=== PATIENT | female | born 1975 | race Caucasian/White ===

== ENCOUNTER 2019-03-01 12:39 | Emergency (ER) | payer OTHER, BC, SELFPAY ==
[2019-03-01] VITALS (23 sets, daily range): BP systolic 101–128; BP diastolic 58–112; PULSE 66–107; RESP 16–22; TEMP 36.5; O2SAT 82–100
--- NOTE | 2019-03-01 13:16 | DI.RAD_ITS ---
EXAM: XR WRIST LT COMPLETE INDICATION: pain. COMPARISON: No exams were available for comparison TECHNIQUE: 2D digital imaging was performed. FINDINGS: No fracture or dislocation is seen. IMPRESSION: Negative left wrist
--- NOTE | 2019-03-01 13:16 | DI.CT_ITS ---
EXAM: CT HEAD CERV SPINE AND FACIAL WO CLINICAL HISTORY: fall TECHNIQUE: Noncontrast COMPARISON: No exams were available for comparison FINDINGS: HEAD CT: No intracranial hemorrhage or skull fracture is seen. The ventricles are normal in size. T here is no evidence of mass or infarct. CERVICAL SPINE CT: There is no evidence of cervical fracture or subluxation. The airway appears inta ct. There are no significant degenerative changes. FACIAL CT: No facial fractures are identified. The globes appear intact. There is no significant si nus disease. IMPRESSION: Negative CT of the head, face and neck.
--- NOTE | 2019-03-01 13:16 | DI.RAD_ITS ---
EXAM: XR HAND LT COMPLETE INDICATION: pain. COMPARISON: No exams were available for comparison TECHNIQUE: 2D digital imaging was performed. FINDINGS: The fingers are suboptimally profiled. There are nondisplaced fractures seen through the proximal po rtions of the distal phalanx of the index and ring fingers. There is no apparent extension to the ar ticular surface. There is minimal posterior angulation. IMPRESSION: Nondisplaced fractures of the distal phalanges of the index and middle fingers.
--- NOTE | 2019-03-01 13:22 | DI.CT_ITS ---
EXAM: CT THORACIC SPINE WO CLINICAL HISTORY: pain, fall TECHNIQUE: Noncontrast COMPARISON: No exams were available for comparison FINDINGS: There is no evidence of fracture. A hemangioma is incidentally noted in the T11 vertebral body. Th ere is no paraspinal hematoma. There is minimal scarring at the lung apices. No pneumothorax is see n. There is no significant scoliosis. IMPRESSION: Negative CT of the thoracic spine.
[2019-03-01] MEDS: LORazepam 2 MG/ML VIAL 1 MG IVP ×2 (13:31→15:51)
[2019-03-01] MEDS: Normal Saline 1,000 ML 1000 ML IV (13:33)
[2019-03-01 13:55] LABS: Abs Immature Grans 0.01 k/cumm (0.0-0.09); Absolute Basophil Count 0.05 k/cumm (0.0-0.2); Absolute Eosinophil Count 0.09 k/cumm (0.0-0.7); Absolute Lymphocyte Count 1.68 k/cumm (1.2-3.4); Absolute Monocyte Count 0.79 k/cumm (0.11-0.7); Absolute Neutrophil Count 5.37 k/cumm (1.2-6.7); Basophils % 0.6; Eosinophils % 1.1; HCT 41.9 % (36.0-46.0); HGB 13.9 g/dL (12.0-15.5); Immature Grans % 0.1; Mean Corp. HGB Concentration 33.2 g/dL (32.0-36.0); Mean Corpuscular Hemoglobin 29.1 pg (27.0-33.0); Mean Corpuscular Volume 87.8 fL (80-95); Mean Platelet Volume 11.6 fL (8.0-11.0); Monocytes % 9.9; Neutrophils % 67.3; Platelet Count 277 x1000/uL (130-400); RBC 4.77 m/cumm (4.00-5.20); RBC Distribution Width 12.8 % (11.7-14.6); White Blood Cell Count 7.99 k/cumm (4.4-10.8)
[2019-03-01 14:06] LABS: ALT 55 U/L (14-59); AST 33 U/L (15-37); Albumin 4.3 g/dL (3.4-5.0); Alkaline Phosphatase 97 U/L (46-116); Anion Gap 13.4 mmol/L (3-11); BUN 18 mg/dL (7-18); Bilirubin, Total 0.8 mg/dL (0.2-1.0); CO2 24.6 mmol/L (21.0-32.0); Calcium 9.8 mg/dL (8.5-10.1); Chloride 102 mmol/L (98-107); Glucose 96 mg/dL (74-106); Potassium 3.5 mmol/L (3.5-5.1); Sodium 140 mmol/L (136-145); Total Protein 8.3 g/dL (6.4-8.2)
[2019-03-01 14:08] LABS: PTT Activated 25.5 sec (21.0-31.4)
[2019-03-01] MEDS: Normal Saline Flush 10 ML SYR IVP (15:51)
--- NOTE | 2019-03-01 16:18 | W.ED.GENAD ---
Discharge Plan Disposition Patient Disposition: HOME Condition: Good Discharge Details Chief Complaint: Trauma Clinical Impression: Cervical muscle strain, Fall, Finger fracture Primary Care Provider: Sheree Sharp ED Provider: Marybeth Jenkins Home Meds and New Rx's Prescriptions: New cyclobenzaprine 10 mg tablet 10 mg PO TID PRN (Reason: muscle spasm) Qty: 10 RF: 0 Continued multivitamin [Daily Multi-Vitamin] 1 EACH tablet 1 ea PO DAILY RF: 0 ranitidine HCl 150 MG tablet 150 mg PO BID PRN RF: 0 vitamin B complex 1 EACH tablet 1 ea PO DAILY RF: 0 Discharge Instructions Instructions: Cervical Strain (ED), Finger Fracture (ED) Additional Instructions: Regard to finger, it appears that you have fractured the distal phalanx of the index and middle finger. Please keep splint on until reevaluated by orthopedics. Encourage rest, ice, elevation. Tylenol and ibuprofen as needed for discomfort. Please call orthopedics tomorrow to schedule follow-up appointment. Regard to your muscle strain of your neck, the MRI is reassuring at this time with no evidence of fracture or spinal cord injury. Please encourage gentle range of motion as instructed. Heat or ice to affected area. If you develop muscle spasms, please take the Flexeril as prescribed. Do not drive will take this medication as it may make you drowsy. You may use Tylenol and/or ibuprofen as needed for discomfort. Please follow-up with primary care in 1 week for reevaluation. If you develop increased pain, fever/chills, weakness or other new/worsening symptoms please seek care urgently once again. Stand Alone Forms: Work Release Referrals: Sheree Sharp MD [Primary Care Provider] - Alonso Husain MD [ [facility] STAFF PHYSICIAN] - Discharge Data Discharge Date/Time-TO BE ENTERED AT DEPARTURE: 03/01/19 18:55 Medical Decision Making <BIBIANA Gay - Last Filed: 03/02/19 09:01> Is a 43-year-old woman who presents to the ER for complaints of fall. Patient reports she was skipping/dancing down the [place] and she tripped became airborne and struck her neck and left arm against the wall. Patient reports mild headache, facial pain over the left zygoma, predominant complaints are neck pain and left hand pain. Patient is also quite anxious yet complaining of tingling of her arms and leg. Patient is complaining specifically of weakness in her extremities. Patient denies any chest or abdominal pain or trauma. Patient denies pain in the lower extremities although she reports the tingling is extremely bothersome. Patient does have a history of complex regional pain syndrome and does report pain in her right arm for which she is received injections in her neck in the past. Patient seems extremely anxious at this time. Patient did receive 100 mcg of fentanyl prior to arrival and ambulance. Patient does report mild nausea during the ambulance ride. Patient is complaining of headache but denies obvious loss of consciousness. Patient clearly is complaining of neck pain and is currently in a cervical collar. Imaging studies specifically head and facial bone CT including cervical spine. As well as a thoracic x-ray of her back given her complaints of pain. X-rays ordered of wrist and hand on the left given her exam. I am somewhat concerned although the patient is quite histrionic at this time but focally she does have some obvious weakness of her extremities which is global. CTs of head cervical and thoracic spine are normal. No obvious facial fractures. She does have obvious fractures of the second and third digits of her fingers. Splints were placed. After patient CTs returned normal I reexamined her neck for clearance of cervical collar. Patient had obvious midline tenderness of the cervical spine. Collar was replaced. Discussed with my attending Dr. Dr. Alexsander Lundberg. We both felt at this time it was most reasonable to order an MRI of her cervical spine prior to collar clearance given her focal tenderness. Ativan was given for premedication prior to MRI. Patient signed out pending MRI and splinting of the left hand. <BIBIANA Palomino - Last Filed: 03/01/19 20:28> Care transition to myself with imaging pending. MRI of the patient's cervical spine was obtained and reviewed by radiologis: FINDINGS: Vertebrae: Unremarkable. Spinal cord: Normal signal. No cord compression. C2-C3: No significant disc disease. No significant spinal stenosis. C3-C4: No significant disc disease. No significant spinal stenosis. C4-C5: No significant disc disease. No significant spinal stenosis. C5-C6: No significant disc disease. No significant spinal stenosis. C6-C7: No significant disc disease. No significant spinal stenosis. C7-T1: No significant disc disease. No significant spinal stenosis. Vertebral arteries: Expected flow voids in the vertebral arteries. Soft tissues: Unremarkable. Other findings: Motion artifact is degrading the images. IMPRESSION: No acute abnormality. Discussed these findings with the patient. C-collar was removed, patient is able to move her neck with no evidence of discomfort. She reports that the tingling she had initially been experiencing since subsided. Feels that her pain is improved. We did discuss that she is at high risk for muscle spasms and whiplash. Encouraged gentle stretching. Stretching exercises were discussed and demonstrated. Advise heat or ice. Tylenol and ibuprofen as needed for discomfort. Watch for pain may be associated with muscle spasm, patient will be prescribed Flexeril in the event they should occur. Discussed splinting options with the patient's left hand. She has distal phalanx fractures of the index and middle finger. However, the patient is insistent she has fracture to be ring finger although I find no documentation of this and do not see evidence of this on x-ray. She would like to have all 3 fingers splinted. As was discussed by Taylor Emanuel PA-C, individually splinting each finger would be cumbersome. Therefore, a plaster splint was created that wraps over the distal tip of the fingers. Patient tolerated this well and finds to be comfortable. I encouraged rest, ice, elevation. Again, advised Tylenol and/or ibuprofen as needed for discomfort. She was given return precautions. She will contact orthopedics tomorrow to schedule follow-up appointment. All of her questions and concerns were addressed and she is in agreement with this plan. HPI <BIBIANA Gay - Last Filed: 03/02/19 09:01> General Date/Time Provider Initiated Documentation: 03/01/19 12:54. HPI Narrative: Is a 43-year-old patient who presents after a fall. She was skipping/dancing down the [place] at work when she tripped and fell. Patient reports she was in the air when she struck the wall of the hallway. Patient reports she struck her neck as well as her left hand. Patient reports mild headache since that time. Patient reports nausea without vomiting. Denies obvious loss of consciousness although she reports she had some darkness to her vision which is quite transient. Patient complaining primarily of neck pain. Patient reports mild upper back pain. No chest pain, difficulty breathing shortness of breath or wheezing. Patient is complaining of left hand pain. She reports a tingling which she specifically notes in her extremities bilaterally both upper and lower extremity. Patient reports mild weakness of her legs. Patient denies any incontinence of urination. Denies any radiating pain into the lower extremities. Denies abdominal pain or distention. Patient denies any blurred vision with double vision or vision changes at this time. Patient does report complex regional pain syndrome for which she has received injections in her neck in the past. Related Data Home Medications Medication Instructions Recorded Confirmed multivitamin [Daily Multi-Vitamin] 1 ea PO DAILY 07/04/12 03/01/19 ranitidine HCl 150 mg PO BID PRN tab-cap 07/04/12 03/01/19 vitamin B complex 1 ea PO DAILY 11/02/12 03/01/19 cyclobenzaprine 10 mg PO TID PRN #10 tab 03/01/19 Previous Rx's Medication Instructions Recorded cyclobenzaprine 10 mg PO TID PRN #10 tab 03/01/19 Allergies Allergy/AdvReac Type Severity Reaction Status Date / Time codeine Allergy Intermediate RASH, Unverified 03/01/19 12:51 ITCHING lactose Allergy Unknown Unverified 03/01/19 12:51 ibuprofen AdvReac Intermediate Unverified 03/01/19 12:51 General Stated Complaint: Trauma BLAIR: 2 Review of Systems <BIBIANA Gay - Last Filed: 03/02/19 09:01> All systems reviewed & are unremarkable except as noted in HPI and below Constitutional Constitutional: Denies chills, Denies fever(s), Reports headache(s) and Denies malaise Eyes Eyes: Denies blind spots, Denies blurry vision and Denies eye pain ENT Ears, Nose, Mouth, and Throat: Reports facial pain, Reports headache(s), Denies nasal discharge, Denies nasal trauma, Reports neck pain, Denies sore throat and Denies throat swelling Cardiovascular Cardiovascular: Denies chest pain, Denies chest pain at rest and Denies palpitations Respiratory Respiratory: Denies cough, Denies pain on inspiration and Denies pain with cough Gastrointestinal Gastrointestinal: Denies abdominal pain, Reports nausea and Denies vomiting Musculoskeletal Musculoskeletal: Denies deformity, Reports muscle weakness, Reports neck pain and Reports tingling Neurologic Neurologic: Reports headache(s) and Reports tingling Endocrine Endocrine: Denies palpitations Allergic/Immunologic Allergic/Immunologic: Denies throat swelling PFSH <BIBIANA Gay - Last Filed: 03/02/19 09:01> Medical History 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 Surgical History (Updated 01/26/18 @ 14:34 by [employer] [place]) Dilation and curettage 2011 after SAB. No complications. Sigmoidoscopy Family History Mother Essential hypertension Personal history of malignant neoplasm Father Diabetes Essential hypertension Heart disease Sister Mental disorder Depression Sister Essential hypertension Sister No problems noted. Grandfather No problems noted. Grandfather No problems noted. Grandmother Diabetes Stroke Grandmother No problems noted. Son No problems noted. Son , Infant No problems noted. Daughter Mental disorder Depression Social History Smoking/Tobacco Use Status: Never Alcohol Intake: never Drug use: Never Do you feel safe at home: Yes Do you feel safe in your relationship?: Yes Exam <BIBIANA Gay - Last Filed: 03/02/19 09:01> Narrative Exam Narrative: CONST: Healthy appearing patient, appears uncomfortable. Appears anxious. Well hydrated. Alert and alert. HENMT: Head nomocephalic, normal to inspection. No obvious evidence of trauma. Left zygoma tenderness with palpation. Hearing grossly normal. External ear canal no erythema or swelling. TM normal bilaterally. Nose normal to inspection. No rhinnorhea. No septal hematoma. Oral mucosa normal. Tounge normal. Dentition normal. Normal posterior oropharynx. Uvula midline. EYES: General normal appearance. Alignment normal. Eyelids normal. Conjunctiva normal. Sclera normal. PERRL. NECK: Normal visual inspection. FROM. No lymphadenopathy. Trachea midline. + Midline tenderness. Cervical collar in place CHEST: Normal insepection of the chest. RESP: Normal respiratory effort. Speaking full sentences. No cough. No wheezing. No retractions. Clear to auscaltation. Breath sound equal and present bilaterally. CARDIO: No JVD. Normal PMI. Regular Rate. Regular Rhythm. Normal peripheral pulses. GI: Normal inspection of abdomen. No distension. Soft. Nontender. Bowel sounds present in all 4 quadrants. No rebound. No gaurding. MUSCULOSKELETAL: Left shoulder with no focal pain with palpation, no clavicle pain with palpation, no humeral pain with palpation of elbow pain with palpation. Wrist pain with palpation noted and digit tenderness distally at the second third and fourth digits on the left hand. Limitation due to pain with flexion extension exam. Sensation intact distally. 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 Patient has full range of motion of right arm. No focal pain with palpation of right arm. Lower extremities. Weak straight leg raising bilaterally. Patient able to heel slide and internally externally rotate her hips bilaterally without pain. No focal tenderness with palpation overlying the hips, femurs or knees bilaterally. No evidence of swelling of the lower legs. No obvious bruising to the lower legs. Patient with a weak flexion and extension of the feet symmetrically however she is capable of dorsiflexion and plantarflexion. Sensation is intact distally. Pulses are intact distally. SKIN: Normal. Dry. No rashes. NEURO: Alert and awake. Speech clear. Alert and oriented x 3. Speech is clear. Cranial nerves intact as tested III - XI. No rotary nystagmus. Sensation intact in all extremities. PSYCH: Normal affect. Cooperative. Course <BIBIANA Gay - Last Filed: 03/02/19 09:01> Vital Signs Vital signs: Vital Signs Temperature 36.5 C 03/01/19 12:43 Pulse 92 H 03/01/19 12:43 Respiratory Rate 22 03/01/19 12:43 Blood Pressure 123/112 H 03/01/19 12:43 Pulse Oximetry 100 03/01/19 12:43 Temperature 36.5 C 03/01/19 12:43 Temperature Source Temporal Artery Scan 03/01/19 12:43 Pulse 95 H 03/01/19 13:42 Respiratory Rate 22 03/01/19 12:43 Respiratory Effort Non-Labored 03/01/19 13:07 Respiratory Depth Normal 03/01/19 13:07 Respiratory Pattern Tachypnea 03/01/19 13:07 Blood Pressure 118/61 03/01/19 13:42 Blood Pressure Mean 74 03/01/19 13:42 Blood Pressure Position Supine 03/01/19 12:43 Pulse Oximetry 100 03/01/19 13:42 Oxygen Delivery Method Room Air 03/01/19 12:43 Oxygen Flow Rate 0 03/01/19 12:43 Pain Level 8 03/01/19 12:43 Lab/Test Results Lab/Test Results: Laboratory Tests Range/Units 03/01/19 03/01/19 03/01/19 13:39 13:39 13:39 WBC (4.4-10.8) k/cumm 7.99 RBC (4.00-5.20) m/cumm 4.77 Hgb (12.0-15.5) g/dL 13.9 Hct (36.0-46.0) % 41.9 MCV (80-95) fL 87.8 MCH (27.0-33.0) pg 29.1 MCHC (32.0-36.0) g/dL 33.2 RDW (11.7-14.6) % 12.8 Plt Count (130-400) x1000/uL 277 MPV (8.0-11.0) fL 11.6 H Immature Gran % 0.1 Neutrophils % 67.3 Lymphocytes % 21.0 Monocytes % 9.9 Eosinophils % 1.1 Basophils % 0.6 Absolute Neutrophils (1.2-6.7) k/cumm 5.37 Absolute Lymphocytes (1.2-3.4) k/cumm 1.68 Absolute Monocytes (0.11-0.7) k/cumm 0.79 H Absolute Eosinophils (0.0-0.7) k/cumm 0.09 Absolute Basophils (0.0-0.2) k/cumm 0.05 PT (9.3-11.0) sec 10.0 INR (0.9-1.1) 1.0 APTT (21.0-31.4) sec 25.5 Sodium (136-145) mmol/L 140 Potassium (3.5-5.1) mmol/L 3.5 Chloride (98-107) mmol/L 102 Carbon Dioxide (21.0-32.0) mmol/L 24.6 Anion Gap (3-11) mmol/L 13.4 H BUN (7-18) mg/dL 18 Creatinine (0.55-1.02) mg/dL 0.90 Estimated GFR/1.73 m2 (mL/min/1.73m2) >= 60.00 Glucose (74-106) mg/dL 96 Calcium (8.5-10.1) mg/dL 9.8 Total Bilirubin (0.2-1.0) mg/dL 0.8 AST (15-37) U/L 33 ALT (14-59) U/L 55 Alkaline Phosphatase (46-116) U/L 97 Total Protein (6.4-8.2) g/dL 8.3 H Albumin (3.4-5.0) g/dL 4.3 Sign Out <BIBIANA Gay - Last Filed: 03/02/19 09:01> Sign Out Data: Sign Out Comment: Signout pending splinting of the left hand and MRI results of the cervical spine for definitive collar clearance. Last updated by Shanique Mata PA at 03/01/19 16:31
--- NOTE | 2019-03-01 16:45 | DI.MRI_ITS ---
EXAM: MR CERVICAL SPINE WO CLINICAL HISTORY: pain, fall, neck trauma TECHNIQUE: Multiplanar multisequence MRI of the cervical spine was performed without intravenous con trast. COMPARISON: CT HEAD CERV SPINE FACIAL WO from 03/01/2019 FINDINGS: BONES: Vertebral body heights are maintained. Intervertebral disc spaces are normal. Alignment is nor mal. Bone marrow signal intensity is within normal limits. CERVICAL CORD: Craniovertebral junction is unremarkable. The cervical cord is normal size and signal intensity. SOFT TISSUES: Unremarkable. C2-3: No disc herniation or bulge is identified. No central spinal canal or neural foraminal stenosi s. C3-4: No disc herniation or bulge is identified. No central spinal canal or neural foraminal stenosi s. C4-5: No disc herniation or bulge is identified. No central spinal canal or neural foraminal stenosi s. C5-6: No disc herniation or bulge is identified. No central spinal canal or neural foraminal stenosi s. C6-7: No disc herniation or bulge is identified. No central spinal canal or neural foraminal stenosi s. C7-T1: No disc herniation or bulge is identified. No central spinal canal or neural foraminal stenos is. There is patient motion artifact degrading the images. IMPRESSION: No acute abnormality.
--- NOTE | 2019-03-01 17:13 | DI.VRAD_ITS ---
PROCEDURE INFORMATION: Exam: MR Cervical Spine Without Contrast Exam date and time: 03/01/2019 4:35 PM Age: 43 years old Clinical history: Neck pain TECHNIQUE: Imaging protocol: Multiplanar magnetic resonance images of the cervical spine without contrast. COMPARISON: CT HEAD CERV SPINE FACIAL WO 03/01/2019 2:06 PM FINDINGS: Vertebrae: Unremarkable. Spinal cord: Normal signal. No cord compression. C2-C3: No significant disc disease. No significant spinal stenosis. C3-C4: No significant disc disease. No significant spinal stenosis. C4-C5: No significant disc disease. No significant spinal stenosis. C5-C6: No significant disc disease. No significant spinal stenosis. C6-C7: No significant disc disease. No significant spinal stenosis. C7-T1: No significant disc disease. No significant spinal stenosis. Vertebral arteries: Expected flow voids in the vertebral arteries. Soft tissues: Unremarkable. Other findings: Motion artifact is degrading the images. IMPRESSION: No acute abnormality. Dictated and Authenticated by: Mauricio Leroy MD. Ordering:STEVEN Bay MD
--- NOTE | 2019-03-01 18:58 | NUR.NOTE ---
Discharge instructions reviewed with verbal understanding. aware to f/u with pcp and ortho as needed. ambulated to exit wit steady gait.
== END 2019-03-01 18:55 | disposition home or self-care (01) ==
PROVIDERS: Physician Assistant; Emergency Provider Physician Assistant; PCP Family Medicine
DX: S16.1XXA Strain of muscle, fascia and tendon at neck level, initial encounter (principal); S62.661A Nondisplaced fracture of distal phalanx of left index finger, initial encounter for closed fracture; S62.663A Nondisplaced fracture of distal phalanx of left middle finger, initial encounter for closed fracture; R51 Headache; R11.0 Nausea; R20.2 Paresthesia of skin; W01.198A Fall on same level from slipping, tripping and stumbling with subsequent striking against other object, initial encounter; Y92.008 Other place in unspecified non-institutional (private) residence as the place of occurrence of the external cause
CPT/HCPCS: 26750; 36415; 80053; 96361; 96374; 96376; 99284; 70450; 70486; 72125; 72128; 72141; 73110; 73130; 85025; 85610; 85730; 99285; J2060

== ENCOUNTER 2019-03-08 08:50 | Outpatient (CLI) | payer OTHER, BC, SELFPAY ==
--- NOTE | 2019-03-08 08:11 | DI.RAD_ITS ---
EXAM: XR HAND LT COMPLETE CLINICAL HISTORY: F/U FRACTURES OF INDEX AND MIDDLE FINGER, LT HAND TECHNIQUE: COMPARISON: XR HAND LT COMPLETE from 03/01/2019 FINDINGS: Three views were obtained and show previously described fractures of the distal phalanges index and r ing fingers. No change in alignment in comparison with previous examination of March 01. IMPRESSION:
== END 2019-03-08 09:10 ==
PROVIDERS: PCP Family Medicine; Visit Provider Student in an Organized Health Care Education/Training Program
DX: S62.661D Nondisplaced fracture of distal phalanx of left index finger, subsequent encounter for fracture with routine healing (principal); S62.663D Nondisplaced fracture of distal phalanx of left middle finger, subsequent encounter for fracture with routine healing
CPT/HCPCS: 73130

== ENCOUNTER 2019-05-02 15:19 | Outpatient (CLI) | payer OTHER, BC, SELFPAY ==
--- NOTE | 2019-05-02 15:12 | DI.RAD_ITS ---
EXAM: XR HAND LT LIMITED CLINICAL HISTORY: Pain TECHNIQUE: COMPARISON: No exams were available for comparison FINDINGS: Two views were obtained and show further healing of fractures of the distal phalanges of index and mi ddle fingers, no gross interval change in alignment of the fracture fragments in comparison with prio r examination of March 08, 2019. IMPRESSION:
== END 2019-05-02 15:39 ==
PROVIDERS: PCP Family Medicine; Visit Provider Student in an Organized Health Care Education/Training Program
DX: M79.642 Pain in left hand (principal); S62.661D Nondisplaced fracture of distal phalanx of left index finger, subsequent encounter for fracture with routine healing; S62.663D Nondisplaced fracture of distal phalanx of left middle finger, subsequent encounter for fracture with routine healing
CPT/HCPCS: 73120

== ENCOUNTER 2020-03-12 10:35 | Outpatient (CLI) | payer BC, SELFPAY ==
[2020-03-14 17:01] LABS: Patient Race White; SARS-CoV-2 RNA Undetected (Undetected); SARS-CoV-2 Specimen Source Nasal
== END 2020-03-12 10:55 ==
PROVIDERS: PCP Family Medicine; Visit Provider Family Medicine
DX: Z20.828 Contact with and (suspected) exposure to other viral communicable diseases (principal)
CPT/HCPCS: U0003

== ENCOUNTER 2020-11-11 16:01 | Outpatient (REF) | payer BC, SELFPAY ==
--- NOTE | 2020-11-11 15:15 | PAPFT_PTH ---
PATIENT: Onofre Dumont LOC: [facility] U#:[id number] AGE/SX: 45/F ROOM: RE11/11/[address]: Shreee Sharp MD : 1975 BED: DIS: 11/11/2020 SPEC #: [id number] RECD: 11/11/20 18:13 STATUS: [place] REQ #: [id number] JAYDEN: 11/11/20 15:[address]: Sheree Shapr DEPT: [facility] Cytology RECD BY: Radha Irwin Tissues: 1 - CX/ENDOCX FOR PAP SMEARS Procedures: PAP THIN PREP/UVM Screening HPV DNA PROBE Comments: [id number]
== END 2020-11-11 16:02 | disposition home or self-care (01) ==
LOC: LBN 16:01
PROVIDERS: PCP Family Medicine; Visit Provider Family Medicine
DX: Z12.4 Encounter for screening for malignant neoplasm of cervix (principal); Z11.51 Encounter for screening for human papillomavirus (HPV)
CPT/HCPCS: 88142; 87624

== ENCOUNTER 2021-04-07 02:34 | Outpatient (CLI) | payer BC, SELFPAY ==
--- NOTE | 2021-04-07 08:00 | DI.MAMMO_ITS ---
Exam(s) MAMMO SCREENING EXAM: MAMMO SCREENING CLINICAL HISTORY: screening,Z12.39, FAMILY H/O BREAST CANCER (MOTHER). TECHNIQUE: Bilateral full field digital CC and MLO mammographic images were obtained with 3D tomosyn thesis and utilizing computer aided detection (CAD). COMPARISON: None. This is a baseline mammogram on this 45-year-old patient. Family history. Amita bell was apparently diagnosed with breast cancer. FINDINGS: There are no significant radiograph findings in the right breast. In the left breast there are 2 findings. Small benign-appearing nodule in the upper outer quadrant r egion has appearance of probably benign node. Other findings is on the CC view where there is an are a of asymmetric density seen approximately 3 cm in from the nipple.. Require spot compression view. No malignant-appearing microcalcification groups is region or elsewhere in either breast. There is no significant architectural distortion nor skin thickening-retraction. IMPRESSION: 1. No radiographic evidence of malignancy in the right breast. 2. Asymmetric density left breast which require spot compression view and possible ultrasound. BI-RADS Category 0 - Assessment Incomplete: Need additional imaging evaluation Breast Density - Category B - Scattered areas of fibroglandular density Breast density Category C or D implies that the patient has dense breast tissue. Dense breast tissue can make it harder to find cancer on a mammogram. Dense breast tissue is also associated with an incr eased risk of breast cancer. This information about the result of the mammogram report was provided to the patient to raise their awareness. Use this report when you speak with the patient about their risks for breast cancer, which includes their family history. At that time, you may recommend additional screening tests (Ultrasoun d or MRI) as these tests may add significant information. A negative radiographic report should not delay biopsy if a dominant or clinically suspicious mass is present. Up to ten percent of cancers are not identified on mammography. A negative report may reinforce clinical impression. Adenosis and dense breasts may obscure an underlying neoplasm. False positive reports average 6 to 10%. Patient will receive a letter notifying them of these results.
== END 2021-04-07 02:54 ==
PROVIDERS: PCP Family Medicine; Visit Provider Family Medicine
DX: Z12.31 Encounter for screening mammogram for malignant neoplasm of breast (principal); R92.8 Other abnormal and inconclusive findings on diagnostic imaging of breast
CPT/HCPCS: 77063; 77067

== ENCOUNTER 2021-04-24 01:59 | Outpatient (CLI) | payer BC, SELFPAY ==
--- NOTE | 2021-04-24 15:00 | DI.MAMMO_ITS ---
Exam(s) MAMMO SCREEN CALL BACK UNI EXAM: MAMMO SCREEN CALL BACK UNI CLINICAL HISTORY: F/U ABNL MAMMO, NODULE IN UOQ, ASYMMETRIC DENSITY 3 CM FROM NIPPLE TECHNIQUE: Spot compression views and tomographic imaging were performed. COMPARISON: 07 April 2021 FINDINGS: No suspicious masses or suspicious microcalcifications are seen. No persistent abnormality is seen on the additional views performed. The findings are consistent wit h overlying fibroglandular tissue. IMPRESSION: BI-RADS Category 1, Negative Yearly screening mammography is recommended. Breast Density - Category B, scattered fibroglandular densities.
== END 2021-04-24 02:19 ==
PROVIDERS: PCP Family Medicine; Visit Provider Family Medicine
DX: R92.8 Other abnormal and inconclusive findings on diagnostic imaging of breast (principal); N64.89 Other specified disorders of breast
CPT/HCPCS: 77063; 77067

== ENCOUNTER 2022-01-20 11:21 | Emergency (ER) | payer OTHER, SELFPAY ==
[2022-01-20 11:24] VITALS: BP 126/71; PULSE 57; RESP 16; TEMP 36.6; O2SAT 100
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
[2022-01-20] MEDS: Acetaminophen 325 MG TAB 650 MG PO (12:16)
== END 2022-01-20 12:15 | disposition home or self-care (01) ==
PROVIDERS: Emergency Provider Physician Assistant; PCP Family Medicine
DX: S02.2XXA Fracture of nasal bones, initial encounter for closed fracture (principal); W18.09XA Striking against other object with subsequent fall, initial encounter; R04.0 Epistaxis
CPT/HCPCS: 99283; 99284

== ENCOUNTER 2022-09-15 16:47 | Emergency (ER) | payer BC, SELFPAY ==
[2022-09-15 16:52] VITALS: BP 127/75; PULSE 74; RESP 18; TEMP 36.3; O2SAT 100
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
[2022-09-15] MEDS: Cyclobenzaprine 10 MG TAB PO (17:15)
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
[2022-09-15] MEDS: Cyclobenzaprine 10 MG TAB, 3 TABS/BTL PO (19:22)
[2022-09-15 19:23] VITALS: BP 114/74; PULSE 73; RESP 19; O2SAT 98
== END 2022-09-15 19:25 | disposition home or self-care (01) ==
PROVIDERS: Emergency Provider Registered Nurse Emergency; PCP Family Medicine
DX: S20.219A Contusion of unspecified front wall of thorax, initial encounter (principal); V89.2XXA Person injured in unspecified motor-vehicle accident, traffic, initial encounter
CPT/HCPCS: 71250; 99284; 72125

== ENCOUNTER → 2023-04-01 01:57 | Outpatient (CLI) | payer BC, SELFPAY ==
--- NOTE | 2023-04-01 07:00 | DI.MAMMO_ITS ---
Exam(s) MAMMO SCREENING EXAM: MAMMO SCREENING CLINICAL HISTORY: screening,z12.39 TECHNIQUE: Bilateral full field digital CC and MLO mammographic images were obtained with 3D tomosyn thesis and utilizing computer aided detection (CAD). COMPARISON: Available for comparison. FINDINGS: Masses/Architectural Distortion: None seen. Microcalcifications: No suspicious pleomorphic-type are seen. Skin Thickening/Nipple Retraction: None. IMPRESSION: 1. No significant interval change with no specific features of malignancy noted. 2. Unless there is more urgent need, screening mammography is recommended, as per [employer] guidelines. BI-RADS Category 1 - Negative Breast Density - Category B - Scattered areas of fibroglandular density Breast density category C or D implies that the patient has dense breast tissue. Dense breast tissue is very common and is not abnormal but dense breast tissue can make it harder to find cancer on a ma mmogram. Also, dense breast tissue may increase their breast cancer risk. This information about the result of the mammogram report was provided to the patient to raise their awareness. Use this report when you speak with the patient about their risks for breast cancer, which includes their family hist ory. At that time, you may recommend for more screening tests (Ultrasound or MRI) as they might be us eful based on their risk. A negative radiographic report should not delay biopsy if a dominant or clinically suspicious mass is present. Up to ten percent of cancers are not identified on mammography. A negative report may reinforce clinical impression. Adenosis and dense breasts may obscure an underlying neoplasm. False positive reports average 6 to 10%. Patient will receive a letter notifying them of these results.
== END ==
PROVIDERS: PCP Family Medicine; Visit Provider Family Medicine
DX: Z12.31 Encounter for screening mammogram for malignant neoplasm of breast (principal)
CPT/HCPCS: 77063; 77067

== ENCOUNTER 2023-10-18 19:27 | Outpatient (REF) | payer BC, SELFPAY | END 2023-10-18 19:28 | disposition home or self-care (01) | LOC: LBN 19:27 | PROVIDERS: PCP Family Medicine; Visit Provider Nurse Practitioner Family | DX: J02.9 Acute pharyngitis, unspecified (principal) | CPT/HCPCS: 87070 ==

== ENCOUNTER 2023-12-31 16:42 | Outpatient (REF) | payer BC, SELFPAY ==
[2023-12-31 21:09] LABS: Anion Gap 9.8 mmol/L (3-11); BUN 24 mg/dL (7-18); CO2 28.2 mmol/L (21.0-32.0); Calcium 9.1 mg/dL (8.5-10.1); Calculated LDL 130 mg/dL (<100); Chloride 105 mmol/L (98-107); Cholesterol 222 mg/dL (<200); Estimated GFR 68.63 (mL/min/1.73m2); Glucose 92 mg/dL (74-106); HDL Cholesterol 70 mg/dL (40-60); Potassium 4.1 mmol/L (3.5-5.1); Sodium 143 mmol/L (136-145); Triglyceride 114 mg/dL (<150)
[2024-01-03 11:12] LABS: HIV-1/2 Ag & Ab Screen Negative (Negative)
[2024-01-03 13:22] LABS: Hepatitis C Ab w Rflx HCV PCR Equivocal (Negative)
[2024-02-08 10:09] LABS: HCV RNA Qualitative Undetected (Undetected)
== END 2023-12-31 16:43 | disposition home or self-care (01) ==
LOC: LBN 16:42
PROVIDERS: PCP Family Medicine; Visit Provider Family Medicine
DX: Z11.59 Encounter for screening for other viral diseases (principal); Z11.4 Encounter for screening for human immunodeficiency virus [HIV]; Z13.1 Encounter for screening for diabetes mellitus; Z13.6 Encounter for screening for cardiovascular disorders; F41.8 Other specified anxiety disorders
CPT/HCPCS: 80048; 80061; 86803; 87389; 87522

== ENCOUNTER 2024-12-19 18:20 | Emergency (ER) | payer BC, SELFPAY ==
[2024-12-19 18:42] VITALS: BP 115/82; PULSE 73; RESP 16; TEMP 36.7; O2SAT 98
--- NOTE | 2024-12-19 19:15 | DI.RAD_ITS ---
Exam(s) XR RIBS RT W PA LAT CHEST CLINICAL HISTORY: right lower rib pain, while weeding. COMPARISON: CT CT CHEST WO from 09/15/2022 TECHNIQUE:: PA and lateral views of the chest and four views of the right ribs were performed. FINDINGS: LUNGS:Clear. No pleural abnormality seen. HEART: Normal size. MEDIASTINUM: Normal. BONES: No displaced rib fracture is seen. No bony destructive lesion is seen. IMPRESSION: 1. Unremarkable radiographic appearance of the right ribs. 2. No acute pulmonary findings. The preliminary [facility] report was reviewed.
[2024-12-19] MEDS: Acetaminophen 325 MG TAB 650 MG PO (20:46)
[2024-12-19] MEDS: Lidocaine 5% Patch 1 PATCH TP (20:47)
[2024-12-19] MEDS: Cyclobenzaprine 10 MG TAB, 3 TABS/BTL PO (20:50)
--- NOTE | 2024-12-19 21:15 | DI.[facility]_ITS ---
PROCEDURE INFORMATION: Exam: XR Right Ribs Exam date and time: 12/19/2024 8:02 PM Age: 49 years old Clinical indication: Right-sided; Right lower rib pain, while weeding TECHNIQUE: Imaging protocol: Radiologic exam of the right ribs. Views: 2 views. COMPARISON: CT CHEST WO 09/15/2022 6:28 PM FINDINGS: Bones/joints: No definite rib fracture Soft tissues: Normal. IMPRESSION: No acute findings. PROCEDURE INFORMATION: Exam: XR Chest Exam date and time: 12/19/2024 8:02 PM Age: 49 years old Clinical indication: Right-sided; Right lower rib pain, while weeding TECHNIQUE: Imaging protocol: Radiologic exam of the chest. Views: 2 views. COMPARISON: CT CHEST WO 09/15/2022 6:28 PM FINDINGS: Lungs: Unremarkable. No consolidation. Pleural spaces: Unremarkable. No pleural effusion. No pneumothorax. Heart/Mediastinum: Unremarkable. No cardiomegaly. Bones/joints: Unremarkable. IMPRESSION: No acute findings. Dictated and Authenticated by: Heriberto Cox MD. Orderin Rubio Garcia MD
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
== END 2024-12-19 20:58 | disposition home or self-care (01) ==
PROVIDERS: Emergency Provider Physician Assistant; PCP Family Medicine
DX: S22.31XA Fracture of one rib, right side, initial encounter for closed fracture (principal); X50.0XXA Overexertion from strenuous movement or load, initial encounter
CPT/HCPCS: 99283 ×2; 71046; 71100

== ENCOUNTER 2025-01-26 04:56 | Outpatient (CLI) | payer BC, SELFPAY ==
--- NOTE | 2025-01-26 06:45 | DI.MAMMO_ITS ---
Exam(s) MAMMO SCREENING EXAM: MAMMO SCREENING CLINICAL HISTORY: screening,z12.39 TECHNIQUE: Mammograms were interpreted according to the usual protocol including computer analysis with CAD system, tomosynthesis and C-view imaging. COMPARISON: 2020 and 2022 FINDINGS: The breasts are composed of scattered fibroglandular densities, Breast Density category B. No suspicious masses or suspicious microcalcifications are seen. No skin thickening or abnormal axillary lymph nodes are seen. There has been no significant change from prior exams. IMPRESSION: BI-RADS Category 1, Negative mammogram Yearly screening mammography is recommended. Breast Density - Category B - There are scattered areas of fibroglandular density. Breast density Category C or D implies that the patient has dense breast tissue. Dense breast tissue can make it harder to find cancer on a mammogram. Dense breast tissue is also associated with an increased risk of breast cancer. This information about the result of the mammogram report was provided to the patient to raise their awareness. Use this report when you speak with the patient about their risks for breast cancer, which includes their family history. At that time, you may recommend additional screening tests (Ultrasound or MRI) as these tests may add significant information. A negative radiographic report should not delay biopsy if a dominant or clinically suspicious mass is present. Up to ten percent of cancers are not identified on mammography. A negative report may reinforce clinical impression. Adenosis and dense breasts may obscure an underlying neoplasm. False positive reports average 6 to 10%. Patient will receive a letter notifying them of these results.
== END 2025-01-26 05:16 ==
PROVIDERS: PCP Family Medicine; Visit Provider Family Medicine
DX: Z12.31 Encounter for screening mammogram for malignant neoplasm of breast (principal); R92.323 Mammographic fibroglandular density, bilateral breasts
CPT/HCPCS: 77063; 77067

== ENCOUNTER 2025-01-31 01:27 | Outpatient (CLI) | payer BC, SELFPAY ==
--- NOTE | 2025-01-31 07:30 | DI.DEXA_ITS ---
Exam(s) XR DEXA BONE DENSITY W/WO DANYELLE EXAM: XR DEXA BONE DENSITY W/WO DANYELLE CLINICAL HISTORY: hx multiple fractures,menopausal disorder,n95.9,z87.81 TECHNIQUE: [employer] C densitometer analysis of left hip, lumbar spine and left forearm. Lateral survey image of the thoracic and lumbar spine. COMPARISON: No exams were available for comparison FINDINGS: Lateral view of the thoracic and lumbar spine shows no evidence of compression fractures. . Bone mineral density measurements of the lumbar spine correspond to a total T- score of -3.7, in the osteoporotic range Bone mineral density measurements of the left hip correspond to a total T-score of -2.6. The femoral neck T-score is -2.8, in the osteoporotic range.. Theleft forearm bone mineral density measurements correspond to a T-score of the distal 3rd of -0.8, in the normal range. IMPRESSION: Osteoporosis of the lumbar spine and hip. Normal bone density of the forearm.
== END 2025-01-31 01:47 ==
LOC: DI 01:27
PROVIDERS: PCP Family Medicine; Visit Provider Family Medicine
DX: N95.9 Unspecified menopausal and perimenopausal disorder (principal); Z87.81 Personal history of (healed) traumatic fracture; M81.0 Age-related osteoporosis without current pathological fracture
CPT/HCPCS: 77080